=== PATIENT | female | born 1975 | race Caucasian/White ===

== ENCOUNTER 2017-08-29 11:32 | Emergency (ER) | payer OTHER ==
[~2017-08-29] VITALS: Ht 162.6 cm; Wt 168.3 kg
[~2017-08-29 11:32] MED LIST: CYAN3INJ INJ; SERT50TA PO
[2017-08-29 11:35] VITALS: BP 131/84; PULSE 86; TEMP 36.8; O2SAT 98; Ht 162.6 cm; Wt 168.3 kg
[2017-08-29] MEDS ORDERED: SERT-234 PO (12:18)
[2017-08-29] MEDS ORDERED: CLIN2CRE PV (12:39)
[2017-08-29] MEDS ORDERED: METR-163 PO (12:39)
--- NOTE | 2017-08-29 13:01 | EMERGENCY ROOM VISIT NOTE ---
History First contact with patient: 11:41 Chief Complaint: VAGINAL BLEEDING Stated Complaint: VAGINAL PAIN, BLEEDING History of Present Illness The patient is a 42 year old female who presents to the Emergency Room with complaints of vaginal pain, burning, itching and mild bleeding. The patient reports that she noticed discomfort upon awakening this morning. When she was wiping herself at work, she noticed a little bit of dark blood. The patient cannot recall any prior history of yeast infections. She has had a vaginal infection in the past that was treated with an oral antibiotic and vaginal cream. The patient reports that she has also had intermittent left upper quadrant abdominal pain now for several months that was addressed by her PCP as possible reflux symptoms. The patient also admits to a history of intermittent constipation. Her last bowel movement was yesterday. She did not notice any blood, mucus or unusual discoloration of the stool. She denies any nausea, vomiting or fever. She denies any urinary symptoms. She also denies , reporting that she is in a monogamous relationship with her boyfriend. The patient rates her discomfort a 5 out of 10. Review of Systems 10 system review was performed and was negative except for pertinent positives and negatives as indicated in history of present illness Past Medical/Surgical History Surgical Problems: (1) Gastric bypass status for obesity (2) S/P cholecystectomy Family History Cancer Diabetes mellitus Heart disease Social History Smoking Status: Never Smoker Alcohol Use: occasionally Marital Status: single Occupation Status: employed Current/Historical Medications Scheduled Sertraline (Zoloft), 50 MG PO DAILY Sertraline (Zoloft), 100 MG PO DAILY Physical Exam Vital Signs Date Time Temp Pulse Resp B/P (MAP) Pulse Ox O2 Delivery O2 Flow Rate FiO2 08/29/17 11:35 36.8 86 20 131/84 98 Room Air Physical Exam CONSTITUTIONAL: Morbidly obese female, alert and oriented X 3 with positive affect. HEENT: Normocephalic, atraumatic. Pupils equal, round and reactive. NECK: Full active range of motion without discomfort. RESPIRATORY: Clear to auscultation bilaterally with no wheezing, crackles, rhonchi or stridor. CARDIOVASCULAR: Regular rate and rhythm with no murmurs, rubs or gallops. GASTROINTESTINAL: Bowel sounds present in all quadrants. Patient has mild left upper quadrant tenderness to palpation. No abdominal rigidity, guarding or rebound. No focal left lower quadrant tenderness or McBurney's point tenderness. Negative CVA tenderness. GENITOURINARY: Under direct supervision, our female physician podiatry assistant student performed exam. The patient does have mild erythema and edema of the labia majora. She has what appears to be a small blood-filled vesicle within the left labia majora. Remaining mucosa appears injected. No obvious white drainage noted. Malodor is noted. MUSCULOSKELETAL: Full range of motion of all joints without discomfort. INTEGUMENTARY: No rash or other significant dermatologic conditions noted. NEUROLOGIC: No focal neurologic deficits noted. Medical Decision & Procedures ED Course Patient history and physical exam were performed. Nurse's notes were reviewed. Vital signs were reviewed and were normal. History and clinical exam are concerning for possible bacterial versus candidal vulvovaginitis. Given the patient's history, body habitus and clinical exam findings, I feel the coverage for both etiologies are necessary. The patient will be provided a prescription for Cleocin 2% vaginal cream at bedtime for 3 days, along with Flagyl 500 mg twice daily 7 days. I did encourage the patient to follow-up with [facility] for further reevaluation and management. She was encouraged to take ibuprofen and Tylenol as needed for pain. The patient was happy with plan of care, and voiced understanding of all discharge instructions. Medical Decision [place] Drug Monitoring Program Search Results: patient reviewed within database Medication Reconcilliation Current Medication List: was personally reviewed by me Blood Pressure Screening Patient's blood pressure: Normal blood pressure Impression Primary Impression: Vulvovaginitis Departure Information Dispostion Home / Self-Care Forms WORK / SCHOOL INSTRUCTIONS, HOME CARE DOCUMENTATION FORM, IMPORTANT VISIT INFORMATION Patient Instructions My [facility] Additional Instructions Administer Cleocin vaginal cream at bedtime take Flagyl antibiotic pills as prescribed.
== END 2017-08-29 12:48 | disposition home or self-care (01) ==
LOC: C.EDB 11:36 → MERGE 11:36 → C.EDC 12:48
DX: N76.0 Acute vaginitis (principal); Z83.3 Family history of diabetes mellitus; Z82.49 Family history of ischemic heart disease and other diseases of the circulatory system